=== PATIENT | male | born 1960 | race Caucasian/White ===

== ENCOUNTER 2018-08-03 18:01 | Emergency (ER) | payer OTHER ==
[~2018-08-03] VITALS: Ht 185.4 cm; Wt 93.0 kg
[~2018-08-03 18:01] MED LIST: NOHOMEMEDICATIONS; ZOFRAN ODT4 MG PO
[2018-08-03] MEDS ORDERED: FLEXERIL PO (18:20)
[2018-08-03] MEDS ORDERED: PREDNISONE 20 M20 MG PO (18:21)
[2018-08-03 18:52] VITALS: BP 129/91
--- NOTE | 2018-08-05 14:50 | EKG ---
[place] [address] ELECTROCARDIOGRAM REPORT Name: SHAMIR HANNA Room: [facility]#: [id number] Admission: 08/03/18 Attend Phys: Discharge: 08/03/18 Date of : 60 Report #: [id number] THIS REPORT FOR: //name// [facility] ED Test Date: 2018-08-03 Test Time: 18:18:07 Pat Name: SHAMIR HANNA Department: Room: Gender: M [employer]: [place] : 1960 Requested By: Bertrand Alarcon Order Number: [id number] Reading MD: Antwan Rowe Measurements Intervals [place] Rate: 96 P: 46 ME: 159 QRS: -30 QRSD: 100 T: 60 QT: 331 QTc: 419 Interpretive Statements Sinus rhythm Left axis deviation RSR' in V1 or V2, right VCD or RVH Minimal ST elevation, anterior leads No previous ECG available for comparison Electronically Signed On 08-05-2018 14:49:47 CDT by Antwan Rowe [email or web address] <ELECTRONICALLY SIGNED> By: Antwan Rowe MD, [facility] 08/05/18 1449 17 17 Antwan Rowe MD, FACC /EPI
== END 2018-08-03 18:53 | disposition home or self-care (01) ==
LOC: M.ERS 18:01
DX: S16.1XXA Strain of muscle, fascia and tendon at neck level, initial encounter (principal); Z90.49 Acquired absence of other specified parts of digestive tract; X58.XXXA Exposure to other specified factors, initial encounter; Y93.89 Activity, other specified; Y92.89 Other specified places as the place of occurrence of the external cause; Y99.8 Other external cause status

== ENCOUNTER → 2021-02-28 | Outpatient (CLI) | payer OTHER ==
[~2021-02-28] MED LIST changes: +FLEXERIL PO; +PREDNISONE 20 M20 MG PO
== END ==
LOC: M.ULTRA 02-21 10:30
PROVIDERS: ATTEND Family Medicine
DX: R22.1 Localized swelling, mass and lump, neck (principal)